=== PATIENT | male | born 1990 | race Caucasian/White ===

== ENCOUNTER 2021-04-14 02:46 | Observation (INO) | payer OTHER ==
[~2021-04-14] VITALS: Ht 182.9 cm; Wt 210.1 kg
[~2021-04-14 02:46] MED LIST: AVELOX400 MG PO; HYDROCODON-ACE1 EA10 PO; HYDROCODON-ACE1 EAC8 PO; LISINOPRIL20 MG PO; NORCO 7.5-3251 EACH PO; TRAMADOL HCL50 MG PO; ULTRAM50 MG PO; ZITHROMAX250 MG PO
--- NOTE | 2021-04-14 06:30 | NUR ---
PT ARRIVED TO ROOM 108 FROM ED VIA STRETCHER @ 0621. SELF TRANSFERED FROM STRETCHER TO HIS BED INDEPENDENTLY. LEFT LEG MARKED PRIOR TO ADMISSION, PT DENIES PAIN OR NAUSEA. STATES HE IS SLEEPY. A/O, PLEASANT, ON ROOM AIR.
--- NOTE | 2021-04-14 07:00 | NUR ---
REPORT RECEIVED FROM MARICARMEN JOSHI. PT RESTING IN BED ON RIGHT SIDE. ALERT AND ORIENTED. PT REPORTS HEADACHE AT 6/10 AT THIS TIME. AWAITING MD PRN ORDERS. COFFEE AND WATER PROVIDED. PT DENIES ADDITIONAL REQUESTS OR COMPLAINTS AT THIS TIME. CALL DARÍO ABBOTT.
--- NOTE | 2021-04-14 07:52 | NUR ---
MORNING ASSESSMENT AND MEDICATION DUE. PT RESTING IN BED TALKING ON PHONE. PT REPORTS 7/10 HEADACHE AND BACK ACHE CONTINUE. SEE MAR FOR MEDICATION GIVEN. PT REPORTS INTERMITTANT NAUSEA. NAUSEA SUDDLENLY INCREASES DURING MORNING CARES AND PT VOMITS 200ML YELLOW/GREEN EMESIS. AFTER EMESIS PT STATES "I FEEL MUCH BETTER NOW." PT STATES EMESIS IS "HOW THIS ALL STARTED." SEE MAR FOR MEDICATION GIVEN. PT REMAINS ALERT AND ORIENTED. LUNG SOUND SHOW EXPRIATORY WHEEZES THROUGHOUT, PT REPORTS HISTORY OF ASTHMA, DOES NOT USE AN INHALER AT HOME. MULTIPLE MISSING TEETH NOTED. DARKNESS NOTED IN PERIORBITAL AREA. REDNESS TO LLE NOTED, THAT IS HOT TO TOUCH. REDNESS OUTLINED AND DATED. PT REPORTS THE REDNESS STARTED YESTERDAY AND INCREASED QUICKLY, HE ORIGINALLY THOUGHT HE "JUST HAD COVID" RELATED TO THE NAUSEA. LLE MEARSURES 45CM CIRCUMFRENTIALLY AT 25CM FROM HEEL. RLL MEASURES 39CM CIRCUMFRENTIALL AT 25CM FROM HEEL. PT REPORTS PAIN MEDICATION HAS HELPED "A LOT" REPORTS HEADACHE IS NOW 0/10. PT REPORTS NAUSEA HAS RESOLVED. BREAKFAST ORDER PLACED. PT DENIES ADDITIONAL REQUESTS OR COMPLAINTS. CALL LIGHT Craft [employer] MILENA. BED RAILS UP.
--- NOTE | 2021-04-14 08:19 | NUR ---
PATIENT RESTING IN BED. NURSE SUNNY IN WITH PATIENT. BREAKFAST WAS ORDERED. THEY DO NOT NEED ANY HELP OR ANYTHING AT THIS TIME. CALL LIGHT IN REACH.
--- NOTE | 2021-04-14 09:20 | NUR ---
Spoke with Jorge and he resides in a mobile home with 3 steps. He lives alone with his dog. Brother lives next door. He does not use any DME, except for a CPAP. He works at the [employer] and [employer]. Denies financial worries. Will have assist from Dad and brother if needed. He drove himself in and plans on driving himself home.
--- NOTE | 2021-04-14 09:20 | NUR ---
Spoke with Jorge and he resides in a mobile home with 3 steps. He lives alone with his dog. Brother lives next door. He does not use any DME, except for a CPAP. He works at the [employer] and [employer]. Denies financial worries. Will have assist from Dad and brother if needed. He drove himself in and plans on driving himself home.
--- NOTE | 2021-04-14 10:15 | NUR ---
THIS RN TO ROOM TO CHECK ON PT. PT RESTING ON RIGHT SIDE. PT REPORTS HEADACHE HAS RETURNED NOW 04/13. SEE MAR FOR MEDICATION GIVEN. PT ALSO REPORTS ONGOING NAUSEA, WAS UNABLE TO EAT HIS BREAKFAST. SEE MAR FOR MEDIATION GIVEN. SALTINE CRACKER PROVIDED, WHICH PT WAS ABLE TO KEEP DOWN, AFTER WHICH HE COULD TAKE ORAL MEDICATIONS. NEW IV FLUIDS GIVEN. IV ASSESSED, WNL, BLOOD RETURN NOTED. PHENEGRAN GIVEN THROUGH FREE FLOWING IV LINE DILUTED IN 30ML NORMAL SALINE OVER SLOW IV PUSH, BLOOD RETURN NOTED EVERY 5ML OF IV PUSH. PT DENIES PAIN AT IV SITE. NO S/S OF PHELBITIS NOTED. PT REQUESTS TO USE A CPAP. RT CALLED AND STATES NO HOSPITAL CPAP MACHINES ARE AVALIABLE. PT CALLS HIS BROTHER TO BRING IN HOME CPAP. PT RESTING ON BACK WITH HEAD OF BED ELVATED TO 12 DEGREES. PT DECLINES FURTHER ELEVATION OF HEAD OF BED. NO ADDITIONAL REQUESTS OR COMPLAINTS. CALL LIGHT WITHIN REACH. BED RAILS UP.
--- NOTE | 2021-04-14 12:10 | NUR ---
THIS RN TO ROOM TO CHECK ON PT. PT RESTING ON LEFT SIDE. PT REPORTS NAUSEA HAS IMPROVED BUT STILL NOT RESOLVED. PT REPORTS 6/10 HEADACHE CONTINUES, SEE MAR FOR ADDITIONAL MEDICATION GIVEN. PT DECLINES LUNCH. CPAP ARRIVED. PT STATES "ONCE I CAN GET SOEM SLEEP WITH OUT STOPPING BREATING EVERY FEW MINUTES, I THINK I'LL FEEL BETTER." RT CALLED. SINDY, RT TO BEDSIDE, TO SET UP CPAP. PT NOW RESTING WITH CPAP IN PLACE, PER HOME SETTINGS. NO OXYGEN NEEDED. PT DENIES ADDITIONAL REQUESTS OR COMPLAINTS. CALL LIGHT WITHIN REACH. BED RAILS UP.
--- NOTE | 2021-04-14 12:16 | NUR ---
MD UPDATED ON PT STATUS AND ARRIVAL OF HOME CPAP. STATES TO PLACE ORDER FOR USE NEEDED. ORDER ENTERED. MD STATES TO DELET NEURO CHECK ORDER IT WAS ENTERED IN ERROR. NO ADDITIONAL NEW ORDERS AT THIS TIME.
--- NOTE | 2021-04-14 13:20 | NUR ---
THIS RN TO ROOM TO CHECK ON PT. PT RESTING ON RIGHT SIDE WITH EYES CLOSED, RESPRAITONS EVEN AND UNLABORED. CPAP IN PLACE. PT ALLOWED TO REST UNDESTURBED, CALL LIGHT WITHIN REACH. BED RAILS UP.
--- NOTE | 2021-04-14 15:01 | NUR ---
AFTERNOON ASSESSMENT AND MEDICATION DUE. THIS RN TO ROOM. PT GETTING UP TO RESTROOM WITH DAVID RODRÍGUEZ. STAND BY ASSIST UP TO CHAIR. PT REPORTS NAUSEA HAS RESOLVED. PT STATES HEADACHE AND NECK PAIN HAS IMPROVED NOW 4/10 AND TOLERATBLE. PT DENIES NEED FOR ADDITIONAL PAIN MEDICATION AT THIS TIME. IV ASSESSED, WNL, BLOOD RETURN NOTED. NO S/S PHLEBITIS NOTED. PHARMASCIST CALLED TO [facility] VANCOMYACIN DOSEING AND STATES OK TO GIVE AT THIS TIME. VANCO ABX INFUSION STARTED. PT ABLE TO VERBALIZE UNDERSTANDING OF SIDE EFFECTS AND MEDICATION PURPOSE. PT REPORTS LEFT LOWER EXTREMITIY IS "STARTING TO THROB A LITTLE BIT BUT IT'S NO BIG DEAL." PT DENIES NEED FOR PAIN MEDICATION. MEAUSREMENTS TO LEFT LOWER EXTREMITY UNCHANGED. REDNESS REMAINS WITHIN OUTLINED AREA. PT DENIES NUMBNESS AND TINGLING. PT REMAINS UP TO CHAIR. NO ADDITIONAL REQUESTS OR COMPLAINTS. STATES "I AM REALLY FEELING BETTER COMPARED TO LAST NIGHT." PT REPORTS APPITITE IS IMPROVING, SNACK PROVIDED, DINNER ORDER PLACED. CALL LIGHT WITHIN REACH.
--- NOTE | 2021-04-14 16:31 | NUR ---
THIS RN TO ROOM TO CHECK ON PT. PT REMAINS UP TO CHAIR. STAND BY ASSIST BACK TO BED. PT REPORTS 02/11 "ACHING" PAIN IN LLE. SEE MAR FOR MEDICATION GIVEN. PT DENIES NAUSEA. PT REPORTS HE WOULD LIKE TO REST FOR A WHILE. CPAP WITHIN REACH. ICE WATER REFILLED. NO ADDITIONAL REQUESTS OR COMPLAINTS. CALL LIGHT WITHIN REACH.
--- NOTE | 2021-04-14 16:45 | NUR ---
PT HERE FOR CELLULITIS OF LEFT LEG. UP IN ROOM WITH STAND BY ASSIST. TOELRATING REGULAR DIET WITH MINIMAL INTAKE. IV TO LEFT FORARM WNL WITH NO S/S OF PHELBITIS NOTED, BLOOD RETURN NOTED THIS SHIFT. MONITORED CLOSELY WITH VANCOMYACIN INFUSIONS. PT ALERT AND ORIENTED. LUNG SOUNDS CLEAR. HEADACHE PAIN AND NAUSEA THIS MORNING. PRN MEDICATIONS GIVEN WITH GOOD EFFET. LLE PAIN STARTING THIS AFTERNOON. REDNESS TO LLE OUTLINED. LLE SWOLLEN, MEASURED THIS SHIFT X2, NO CHANGES. ORAL POTASSIUM REPLACEMENT GIVEN THIS SHIFT. PTS HOME CPAP ARRIVED AND SET UP BY RT. PT USES APPROPRILATY. IV VANCOMYACIN GIVEN X2. PT AFEBRIAL SO FAR THIS SHIFT. VOIDING QUANTITY SUFFICIENT. PT USES CALL LIGHT APPROPRIATLY.
--- NOTE | 2021-04-14 17:56 | NUR ---
THIS RN TO ROOM TO CHECK ON PT. PT RESTING ON RIGHT SIDE, CPAP IN PLACE. RESPRIATIONS EVEN AND UNLABORED. CALL LIGHT WITHIN REACH. BED RAILS UP. PT ALLOWED TO REST UNDESTURBED.
--- NOTE | 2021-04-14 19:08 | NUR ---
REPORT GIVEN TO MARICARMEN SHEA, WHO IS ASSUMING CARE OF PT.
--- NOTE | 2021-04-14 20:25 | NUR ---
PT CALLED, HAD VOMITED, APPROX 100, STATED IT WAS THE JELLO HE ATE EARLIER, THINKS THE PO PAIN MEDICATION ON EMPTY STOMACH MAY HAVE CAUSED VOMITING. PT DID NOT EAT HIS DINNER, HE DIDN'T FEEL LIKE IT. USED URINAL INDEPENDENTLY; DID REQUEST TO TRY ANOTHER JELLO, DENIED NAUSEA.
--- NOTE | 2021-04-14 21:45 | NUR ---
IN TO GET VITALS, FRESH ICE WATER PROVIDED AT THIS TIME, NO FURTHER NEEDS
--- NOTE | 2021-04-14 22:13 | NUR ---
awake, watching tv, no c/o pain. on room air, SBA, IVF infusing LAC, patent. abd large, pt obese, 1+ generalized edema R hand and LE, Lleg red, hot and tender to touch, areas marked. elevated, good cms. coop with assessment, call light and fresh fluids at bedside
--- NOTE | 2021-04-14 23:46 | NUR ---
c/o 5/10 l le pain, medicated with Oxycodone 5mg po
--- NOTE | 2021-04-15 00:30 | NUR ---
PT PROVIDED WITH AN I.S. AT BEDSIDE FOR RESENT TEMP, TEMP RECHECKED, ICE WATER REFILLED AT THIS TIME, URNIAL EMPTIED FOR PT, NO FURHTER NEEDS
--- NOTE | 2021-04-15 03:43 | NUR ---
rESTING, NO DISTRESS, USING HOME cpap. IVF INFUSING W/O PROBLEMS, NO C/O ADVERSE REACTION TO IV ABX. L LEG DECREASING REDNESS AND WARMTH. NO FURTHER C/O PAIN OR FEELING NAUSEATED. CALL LIGHT AT HANDS REACH
--- NOTE | 2021-04-15 05:03 | NUR ---
Pt has slept this shift, using home CPAP, on room air otherwise, lungs clear, obese, 1/trace edema to R hand and LE, except L hand, IVF infusing BOB, patent. no c/o adverse reaction to Vancomycin, tolerating liquids. Medicated per LLE pain, and per feeling nauseated x1, no emesis, pain med effective. LLE below knee red, warm-tender to touch, decreased redness, edges marked, elevated. voising QS. cooperative, alert, oriented, independent in room. had a temp of 99.1 at begining of shift, afebrile, IS at bedside.
--- NOTE | 2021-04-15 06:13 | NUR ---
coop with vitals and assessment, decreased redness and warmth from LLE, decreased pain. turns and repositions self in bed, leg elevated. uses cpap most of this shift. IVF infusing. c/o h/a, medicated with Tylenol, tolerating fluids well
--- NOTE | 2021-04-15 07:43 | NUR ---
REPORT RECEVIED FROM MARICARMEN SHEA. PT SITTING ON EDGE OF BED. PT REPORTS 10/10 PAIN WITH ACTIVITY IN LLE. PT ALSO REPORTS 8/10 HEADACHE. PT STATES WHEN RESTING PAIN IN LLE IS DOWN TO 2/10. SEE MAR FOR MEDICATION GIVEN. PT REPORTS HE IS OTHERWISE "FEELING BETTER" TODAY. IV ABX COMPLETE. IV ASSESSED, WNL. NO S/S OF PHELBITIS NOTED. COFFEE PROVIDED PT NORMALLY DRINKS UP TO 24OZ/DAY, AND THIS COULD BE CONTRIBUTING TO HEACACHE. PT ALSO REPORTS HIS LEFT INNER GROIN HAS BEEN "A LITTLE SORE." REDNESS TO LLE REMAINS WITHIN OUTLINE. PT REPORTS IT SEEMS "MUCH BETTER." NO ADDITIONAL REQUESTS OR CONCERNS AT THIS TIME. CALL LIGHT WITHIN REACH.
--- NOTE | 2021-04-15 09:22 | NUR ---
ASSESSMENT AND MEDICATION DUE. PT UP IN ROOM. PT REPORTS HEADACHE AND LLE PAIN HAS IMPROVED, NOW /, PT DENIES NEED FOR ADDITIONAL PAIN MEDICATIONS. PT STATES "I FEEL SO MUCH BETTER NOW." PT REPORTS HE HAD AN EPISODE OF NAUSEA/EMESIS THIS MORNING. PRN NAUSEA MEDICATIONS GIVEN BY MARICARMEN SAAVEDRA. PT REPORTS NAUSEA HAS NOW RESOLVED. IV ASSESSED, WNL. BLOOD RETURN NOTED. NO S/S OF PHELBITITS NOTED. PT ALERT AND ORIENTED. LUNG SOUNDS CLEAR. HEART TONES REGULAR. PT STEADY ON FEET BUT LIMPS AT TIMES RELATED TO PAIN. REDNESS TO LLE WITHIN MARKED AREA. CONTINUES TO BE WARM TO TOUCH BUT HEAT LEVEL IMPROVING. PT REPORTS HIS LEG "LOOKS A LOT BETTER ALREADY." PT REPORTS SORENESS IN GROIN CONTINUES, LYMPNODES FLET AND APPEAR SLIGHTLY SWOLLEN. LLE MEASURES 44CM TODAY, IMPROVED FROM YESTERDAY. RRE CONTINUES TO MEAUSRE 39CM. BOTH MEASUREMENTS TAKEN AT 25CM FROM HEEL. PT ENCORUAGED TO EAT YOUGURT AT HOME TO HELP WITH DIARRHEA PREVENTION AND CONTINUE TO STAY HYDRATED. PT VERBALIZES UNDERSTANDING. NO ADDITIONAL REQUESTS OR COMPLAINTS AT THIS TIME. CALL LIGHT WITHIN REACH. BED RAILS UP.
[2021-04-15] MEDS ORDERED: CEPHALEXIN500 M1 PO (09:32)
[2021-04-15] MEDS ORDERED: OXYCODONE HCL5 MG PO (09:33)
[2021-04-15] MEDS ORDERED: ONDANSETRON ODT4 MG SL (09:34)
--- NOTE | 2021-04-15 10:17 | NUR ---
PT READY FOR DISCHARGE. PT RESTING IN BED. CONTINUES TO REPROT 3-4/10 PAIN IN LLE AND HEADACHE. PHARMACIST TO BEDSIDE TO REVIEW MEDICATIONS. PT VERBALIZES UNDERSTANDING OF MEDICATIONS AND SIDE EFFECTS AND STATES HIS QUESTIONS HAVE BEEN ANSWERED. PUMP ALARMING, ABX AND FLUSH COMPLETE. IV ASSESSED, WNL. NO S/S PHLEBITIS NOTED. IV DC'D PER PROTOCOL, GAUZE AND COBAN APPLIED. PT DRESSES SELF, NO ASSISTANCE NEEDED. DISCHARGE INSTRUCTIONS REVIEWED WITH PT. PT VEBALIZES UNDERSTANDING OF INSTRUCTIONS, SKIN CARE, MEDICATIONS, AND FOLLOW UP APPOINTMENT. PT STATES HIS QUESTIONS HAVE BEEN ANSWERED. PT AWIATING ARRIVAL OF FAMILY NO ADDITIONAL REQUESTS OR CONCERNS.
== END 2021-04-15 10:35 | disposition home or self-care (01) ==
LOC: ED 02:46 → MS 02:48 → ED 05:06 → MS 04-15 10:35
PROVIDERS: ADMIT Student in an Organized Health Care Education/Training Program; ATTEND Student in an Organized Health Care Education/Training Program
DX: A41.9 Sepsis, unspecified organism (principal); L03.116 Cellulitis of left lower limb; I10 Essential (primary) hypertension; E66.01 Morbid (severe) obesity due to excess calories; Z87.891 Personal history of nicotine dependence; Z88.1 Allergy status to other antibiotic agents; Z91.013 Allergy to seafood; Z20.822 Contact with and (suspected) exposure to COVID-19; Z68.42 Body mass index [BMI] 45.0-49.9, adult
CPT/HCPCS: 71045; 80048; 80053; 80202; 83605; 85025; 87040; 96365; 96366; 96367; 96372; 96374; 96375; 96376; 99285-25; C9803; G0378; J0696; J1170; J1650; J2405; J2550; J3370; J7030; J7060; J7121; U0003

== ENCOUNTER 2021-04-18 23:19 | Emergency (ER) | payer OTHER ==
[~2021-04-18] VITALS: Ht 182.9 cm; Wt 215.5 kg
[~2021-04-18 23:19] MED LIST changes: +CEPHALEXIN500 M1 PO; +ONDANSETRON ODT4 MG SL; +OXYCODONE HCL5 MG PO
--- OUTSIDE RECORDS SUMMARY | 2021-04-18 23:22 | XMS ---
PreManage Notification: ANGE RODRÍGUEZ Security Fabricator Assembl[employer] Events No recent Security Events currently on file CRITERIA MET - History of Sepsis Dx CARE PROVIDERS There are no care providers on record at this time. Ruy has no Care Guidelines for this patient. Raghavendra VISIT COUNT (12 MO.) 1 DARREN Claire TOTAL 1 NOTE: Visits indicate total known visits. ED/C VISIT TRACKING (12 MO.) 04/18/2021 23:20 DARREN Carmona [place] TYPE: Emergency COMPLAINT: - LT LEG SWELLING INPATIENT VISIT TRACKING (12 MO.) 04/14/2021 02:48 DARREN Carmona [place] TYPE: Observation COMPLAINT: - CELLULITIS DIAGNOSES: - Essential (primary) hypertension - Allergy status to other antibiotic agents - Cellulitis of left lower limb - Body mass index [BMI] 45.0-49.9, adult - Morbid (severe) obesity due to excess calories - Allergy to seafood - Personal history of nicotine dependence - Sepsis, unspecified organism [email or web address]
[2021-04-19] MEDS ORDERED: DOXYCYCLINE HY100 MG PO (00:31)
== END 2021-04-19 02:08 | disposition home or self-care (01) ==
LOC: ED 23:19
DX: L03.116 Cellulitis of left lower limb (principal); I10 Essential (primary) hypertension; E66.9 Obesity, unspecified; Z91.030 Bee allergy status; Z88.1 Allergy status to other antibiotic agents
CPT/HCPCS: 85025; 93971; 96374; 99284-25; J3370; J7060

== ENCOUNTER 2022-03-15 01:23 | Emergency (ER) | payer OTHER ==
[~2022-03-15] VITALS: Ht 182.9 cm; Wt 225.3 kg
[~2022-03-15 01:23] MED LIST changes: +DOXYCYCLINE HY100 MG PO
[2022-03-15] MEDS ORDERED: CEFDINIR300 MG PO (03:21)
== END 2022-03-15 04:07 | disposition home or self-care (01) ==
LOC: ED 01:23
DX: L03.116 Cellulitis of left lower limb (principal); Z20.822 Contact with and (suspected) exposure to COVID-19; I10 Essential (primary) hypertension; E66.9 Obesity, unspecified; Z88.1 Allergy status to other antibiotic agents; Z91.013 Allergy to seafood
CPT/HCPCS: 36415; 85025; 85379; 87502; 93971; 96365; 99284-25; C9803; J0696; U0003

== ENCOUNTER 2022-03-15 15:18 | Emergency (ER) | payer OTHER ==
[~2022-03-15] VITALS: Ht 182.9 cm; Wt 225.0 kg
[~2022-03-15 15:18] MED LIST changes: +CEFDINIR300 MG PO
--- OUTSIDE RECORDS SUMMARY | 2022-03-15 15:20 | XMS ---
PreManage Notification: ANGE RODRÍGUEZ Security Copy Center Associate Events No recent Security Events currently on file CRITERIA MET - [facility] - 2 Visits in 30 Days CARE PROVIDERS EJ LEE Physician Blunger Loader 04/19/2021-Current PHONE: [phone] Ruy has no Care Guidelines for this patient. ECheo VISIT COUNT (12 MO.) 3 [facility] TOTAL 3 NOTE: Visits indicate total known visits. ED/UCC VISIT TRACKING (12 MO.) 03/15/2022 15:18 DARREN Carmona OR TYPE: Emergency COMPLAINT: - LT LEG PAIN 03/15/2022 01:24 DARREN Carmona OR TYPE: Emergency COMPLAINT: - LEG PAIN 04/18/2021 23:20 DARREN Carmona OR TYPE: Emergency COMPLAINT: - LT LEG SWELLING DIAGNOSES: - Bee allergy status - Essential (primary) hypertension - Cellulitis of left lower limb - Obesity, unspecified - Allergy status to other antibiotic agents INPATIENT VISIT TRACKING (12 MO.) 04/14/2021 02:48 DARREN Carmona OR TYPE: Observation COMPLAINT: - CELLULITIS DIAGNOSES: - Essential (primary) hypertension - Allergy status to other antibiotic agents - Cellulitis of left lower limb - Body mass index [BMI] 45.0-49.9, adult - Morbid (severe) obesity due to excess calories - Allergy to seafood - Personal history of nicotine dependence - Sepsis, unspecified organism [email or web address]
== END 2022-03-15 23:07 | disposition home or self-care (01) ==
LOC: ED 15:18
DX: L03.116 Cellulitis of left lower limb (principal); Z20.822 Contact with and (suspected) exposure to COVID-19
CPT/HCPCS: 36415; 80053; 83605; 85025; 87502; 96365; 99283-25; C9803; J0696; J7030; U0003

== ENCOUNTER 2023-01-18 23:17 | Inpatient (IN) | payer OTHER ==
[~2023-01-18] VITALS: Ht 188 cm; Wt 225.4 kg
[~2023-01-18 23:17] MED LIST changes: +MELOXICAM10 MG PO
--- OUTSIDE RECORDS SUMMARY | 2023-01-18 23:30 | XMS ---
PreManage Notification: ANEG RODRÍGUEZ Security [employer] Events No recent Security Events currently on file CRITERIA MET - [facility] - 2 Visits in 30 Days CARE PROVIDERS -[place]- Dentist: Estate Planning Director [facility] PHONE: [phone] EJ LEE Physician Interactive Marketing Strategist 04/19/2021-Current PHONE: Unknown Ruy has no Care Guidelines for this patient. Raghavendra VISIT COUNT (12 MO.) [address] [place] [address] TOTAL 4 NOTE: Visits indicate total known visits. ED/UCC VISIT TRACKING (12 MO.) 01/18/2023 23:19 DARREN Carmona OR TYPE: Emergency COMPLAINT: - L LEG SWELLING / NAUSEA 01/18/2023 03:04 DARREN Carmona OR TYPE: Emergency COMPLAINT: - LT LEG PAIN 03/15/2022 15:18 DARREN Carmona OR TYPE: Emergency COMPLAINT: - LT LEG PAIN DIAGNOSES: - Cellulitis of left lower limb - Contact with and (suspected) exposure to COVID-19 03/15/2022 01:24 DARREN Carmona OR TYPE: Emergency COMPLAINT: - LEG PAIN DIAGNOSES: - Allergy status to other antibiotic agents - Allergy to seafood - Cellulitis of left lower limb - Contact with and (suspected) exposure to COVID-19 - Essential (primary) hypertension - Obesity, unspecified INPATIENT VISIT TRACKING (12 MO.) No inpatient visits to display in this time frame [email or web address]
[2023-01-19 02:21] VITALS: BP 138/84
--- NOTE | 2023-01-19 02:55 | NUR ---
ARJO BED ORDERED.
[2023-01-19 03:51] VITALS: BP 131/76
--- NOTE | 2023-01-19 04:45 | NUR ---
PT GIVEN NORCO FOR BACK PAIN.
--- NOTE | 2023-01-19 07:15 | NUR ---
REPORT FROM LAYLA HERNADEZ, PT WITH NS@125 L ARM, CALL LIGHT IN REACH RESTING.
--- NOTE | 2023-01-19 07:15 | NUR ---
Spoke with Jorge. He states he is living in a camp trailer behind his brother's shop. He dad lives near. He does not have any issues getting in out of his trailer. He states his symptoms are most headache, general aching, pain. He denies issues with walking. He does not use DME and drives. Denies issues with cooking, cleaning, shopping. Plans on dc to home when cleared medically. Denies needs, denies financial issues.
[2023-01-19 08:03] VITALS: BP 126/71
--- NOTE | 2023-01-19 08:16 | NUR ---
PATIENT AWAKE IN BED, VITALS AND I&OS CHARTED. PATIENT UP TO BR FOR VOID, WEARING PERSONAL SANDALS FOR SAFETY. LINEN CHANGED. PATIENT DECLINED SHOWER, WOULD LIKE TO "WAIT TIL HE GETS HOME." RN AT BEDSIDE AT THIS TIME.
--- NOTE | 2023-01-19 08:40 | NUR ---
bed bath with chlorhexidine wipes provided to pt. left leg red and painful to touch, cracks noted in bilateral heel/foot skin - educated about foot care and hygeine. pt declined meal - eats after [address] black in to round on pt with this rn, see new orders. enc water. pt call light in reach denies needs.
--- NOTE | 2023-01-19 09:15 | NUR ---
pt reports 10/10 right hip pain, no redness or swelling, no injury noted, also complains of headache. left leg elevated above heart with ceiling sling/lift. call light in reach - medicated see emar.
--- NOTE | 2023-01-19 10:05 | NUR ---
pt trsf to room 107 by chair, report to jone and corbin najera.
[2023-01-19 10:45] VITALS: BP 154/86
[2023-01-19] MEDS ORDERED: MELOXICAM15 MG PO (11:28)
--- NOTE | 2023-01-19 11:28 | NUR ---
MED REC COMPLETE
--- NOTE | 2023-01-19 11:38 | NUR ---
RECEIVED REPORT IN CCU FROM ANDI TOVAR RN AT 1004 HOURS AND TRANSFERRED PT FROM ROOM 126 TO 107 VIA HIS CHAIR IN THE ROOM, WITH FEET ELEVATED, SO THE BARIATRIC BED IN ROOM 107 COULD BE CHECKED OFF BY "FACILITIES". PT BELONGINGS TRANSFERRED WITH PT TO ROOM 107. BED MADE, PT SELF TRANSFERRED TO BED, PILLOW PLACED BELOW HIS RIGHT HIP FOR 10 OUT OF 10 PAIN FROM "LAYING IN BED ALL THE TIME". HOT PACK PLACED ON HIP WELL. LLE ELEVATED IN SLING TO LIFT IN CEILING TO BE ABOVE THE HEART, WITH PILLOW UNDERNEATH IT, HOB SLIGHTLY ELEVATED. PT STATES HE DOES INTERMITTENT FASTING AND SINCE HE HAS STARTED THIS DIET PLAN, HE HAS BEEN EXPERIENCING HEARTBURN EVERY MORNING BEGINNING 0900 HOURS. HE DENIES HX OF HEARTBURN PRIOR TO DIETING. HE STATES HE DRINKS ONLY WATER UNTIL ABOUT 2PM. PT IS ABLE TO AMBULATE INDEPENDENTLY WITH TUBE/LINE MANAGEMENT. ASSESSMENT DONE. CALL LIGHT IN REACH, ICE WATER REFILLED. PT DENIES FURTHER NEEDS AT THIS TIME.
--- NOTE | 2023-01-19 12:30 | NUR ---
PT USES CALL LIGHT APPROPRIATELY TO REQUEST ASSISTANCE TOILETING. PT ABLE TO AMBULATE UNASSISTED WITH IV POLE TO VOID IN BATHROOM. 575 CLEAR DARK JORGE URINE VOIDED. PT BACK TO BED AFTER PERFORMING SOME STANDING STRETCHES, LLE IN SLING ELEVATED ABOVE HEART, PILLOW PLACED BELOW RIGHT HIP. PT STATES THE PILLOW AND HOT PACK HAVE HELPED HIS HIP PAIN TREMENDOUSLY. CALL LIGHT IN REACH. DENIES FURTHER NEEDS AT THIS TIME.
--- NOTE | 2023-01-19 13:43 | NUR ---
PT IV FLUIDS COMPLETE. PT REPORTS PAIN IN HEAD, "ALL OVER". RATES PAIN IN HEAD 8 OUT OF 10 THROBBING, ACHING, CONSTANT PAIN. NO HX OF MIGRAINES. PT REPOSITIONED TO HIS RIGHT SIDE, LLE ELEVATED ON 3 PILLOWS TO KEEP ABOVE THE HEART. PT REQUESTS "SOMETHING FOR PAIN". CALL LIGHT IN REACH.
--- NOTE | 2023-01-19 14:00 | NUR ---
PT REQUESTED [employer] [facility] FROM [facility] FOR HIS MEAL AFTER 2PM. ORDERED MEAL FOR HIM. CALL LIGHT IN REACH.
[2023-01-19 16:10] VITALS: BP 153/62
--- NOTE | 2023-01-19 18:48 | NUR ---
PT REPORTS VOIDED X3 WITHOUT USING THE CALL LIGHT, SPILLED HIS WATER AND CLEANED IT UP ALSO WITHOUT USING HIS CALL LIGHT. REINFORCED THE IMPORTANCE OF USING HIS CALL LIGHT TO ASK FOR HELP. PT WAS ABLE TO EAT SOME LUNCH AROUND 1400 HOURS AND MOST OF HIS DINNER, STATING HE IS NO LONGER NAUSEOUS. HE REPORTS SOME DISCOMFORT IN HIS RIGHT HIP STILL BUT NOT ENOUGH TO REQUEST PAIN MEDS OR NON-PHARMACOLOGIC METHODS OF PAIN RELIEF. CALL LIGHT IN REACH, DENIES FURTHER NEEDS.
--- NOTE | 2023-01-19 18:50 | NUR ---
PT TRANSFERRED TO M/S THIS MORNING JUST AFTER 1000 HOURS, FROM CCU. HE HAS BEEN AWAKE FOR MOST OF THIS SHIFT, PLEASANT AFFECT, C/O PAIN MOSTLY IN HIS RHIP FROM "LAYING IN THIS DAMNED BED ALL DAY". HE WAS GIVEN TYLENOL X1 TODAY FOR THIS PAIN. REPORTS THE PAIN IN HIS LEFT CALF IS LESS THAN THE PAIN IN HIS HIP AND HE HAS BEEN ABLE TO KEEP HIS LLE ELEVATED ABOVE HIS HEART FOR MOST OF THE SHIFT. HE WAS UP TO THE CHAIR TO EAT MEALS BUT FOR NOT LONGER THAN 30 MINUTES AT A TIME. HE IS ABLE TO AMBULATE AD NIKKI, BUT HIS LEG NEEDS TO BE ELEVATED ON PILLOWS WHILE IN BED OR SEATED. HE DOES INTERMITTENT FASTING AND EATS ONLY AFTER 1400 HOURS. HE DRINKS ONLY WATER THROUGHOUT THE DAY. PT RECEIVES ABX IN THE MORNING, LABS IN THE MORNING, LOTRIMIN BETWEEN THE TOES BID.
--- NOTE | 2023-01-19 19:10 | NUR ---
REPORT RECEIVED FROM MARICARMEN MOTTA. PT LAYING IN BED WITH LLE ELEVATED IN SLING. PT RESPONDS WHEN ADDRESSED. PT REPORTS USING URINAL. URINAL EMPTIED. PT DENIES ANY OTHER NEEDS AT THIS TIME. CALL LIGHT IN REACH.
[2023-01-19 21:50] VITALS: BP 147/74
--- NOTE | 2023-01-19 22:02 | NUR ---
IN TO ADMINISTER MEDICAITONS, SEE MAR. PT REPORTING HEADACHE 04/13 AND REQUESTING PRN PAIN MEDICATION. PRN TYLENOL ADMINISTERED, SEE NOV. VITALS AND I&Os COMPLETE. ASSESSMENT COMPLETE. LUNG SOUNDS CLEAR IN RUL AND LARRY. DIMINISHED IN RLL AND LLL. BOWEL TONES ACTIVE. REDNESS NOTED TO PTs LLE. WARM TO TOUCH. PT DENIES PAIN TO LLE. LLE ELEVATED ON PILLOWS. PT DENIES ANY OTHER NEEDS AT THIS TIME. CALL LIGHT IN REACH.
--- NOTE | 2023-01-19 22:26 | NUR ---
Assisted Pt with going to and from the bathroom and using the bathroom. Refilled ice pack. Pt had itchiness on back and red spots. Notified RN. Left call light in reach and bed alarm on. No other needs expressed by patient.
--- NOTE | 2023-01-20 00:52 | NUR ---
IN TO ROUND ON PT. PT RESTING IN BED SEMI-FOWLERS EYES CLOSED. RR EVEN AND UNLABORED. UPON ENTERING ROOM PT AWAKENS FROM SLEEP. PT STATES "I HAVE BAD SLEEP APNEA, THAT IS WHY I AM SITTING UP." PT REPORTS USING CPAP AT NIGHT. PULSE OX PLACED ON PTs FINGER O2 SATS AT 98% ON RA. PT REQUESTING WATER, WATER PROVIDED. PT DENIES ANY OTHER NEEDS AT THIS TIME. CALL LIGHT IN REACH.
[2023-01-20 01:24] VITALS: BP 159/83
--- NOTE | 2023-01-20 02:01 | NUR ---
SPOT CHECKED PTs O2 SATS WHILE PT RESTING IN BED WITH EYES CLOSED. RR EVEN AND UNLBAORED. O2 SATS 100% ON RA.
--- NOTE | 2023-01-20 02:47 | NUR ---
IV ABX COMPLETED. IV FLUSHED AND SALINE LOCKED. PT'S NEFF IS DRAINING FREELY, YELLOW CLOUDY URINE.
[2023-01-20 05:26] VITALS: BP 175/74
--- NOTE | 2023-01-20 05:26 | NUR ---
IN TO ROUND ON PT. PT RESTING IN BED WITH EYES CLOSED. RR EVEN AND UNLABORED. PT AWAKENS WHEN THIS RN ENTERS ROOM. VITALS AND I&Os COMPLETE. ASSESSMENT COMPLETE. LUNG SOUNDS CLEAR. BOWEL TONES ACTIVE. PT DENIES PAIN AT THIS TIME. LLE MINIMAL EDEMA NOTED. REDNESS NOTED TO LLE. LLE ELEVATED ON PILLOWS. LLE WARM TO TOUCH. PT DENIES PAIN TO LLE WITH TOUCH. URINAL EMPTIED. PT DENIES ANY OTHER NEEDS AT THIS TIME. CALL LIGHT IN REACH.
--- NOTE | 2023-01-20 07:00 | NUR ---
BEDSIDE HANDOFF REPORT RECEIVED FROM EQUIPMENT OPERATION INSTRUCTOR RN. PT RESTING IN BED, DENIES NEEDS AT THIS TIME.
--- NOTE | 2023-01-20 08:19 | NUR ---
PT SITTING IN CHAIR. PT ON ROOM AIR, LUNG SOUNDS CLEAR, DENIES SOB. PT STATES PAIN IS TOLERABLE, MOSTLY LOCATED ON POSTERIOR LEG. REDNESS AND WARMTH RECEEDING ON ANTERIOR LEG, REDNESS ON POSTERIOR LEG EXTENDING PAST OUTLINE. IV SALINE LOCKED. PT DENIES NASUEA, BOWEL TONES ACTIVE. VOIDING WITHOUT DIFFICULTY. DISCUSSED PLAN OF CARE FOR THE DAY. PT PROVIDED WITH TOOTH BRUSH AND TOOTH PASTE. PT DENIES OTHER NEEDS AT THIS TIME.
--- NOTE | 2023-01-20 09:44 | NUR ---
SPOKE TO PATIENT ABOUT THE DISCHARGE PLAN OF CARE.PATIENT WILL GO HOME TO HIS [place] THAT IS ON HIS [place]OTHER[place] L[place]. PATIENT DENIES THE NEED FOR DME WHEN DISCHARGED.
[2023-01-20 10:09] VITALS: BP 146/77
--- NOTE | 2023-01-20 10:10 | NUR ---
PATIENT IN BED AFTER MEAL, VITALS AND I/O'S COMPLETED. PT HAS NO OTHER REQUESTS AT THIS TIME. CALL LIGHT WITHIN REACH.
--- NOTE | 2023-01-20 10:31 | NUR ---
PER NURSING, PATIENT DOES INTERMITTENT FASTING AT HOME. HE DOES NOT EAT UNTIL 2 PM. DIETARY STAFF AWARE.
--- NOTE | 2023-01-20 10:51 | NUR ---
PT ALERT, ORIENTED AND SEEMS VERY RECEPTIVE TO MY VISIT. PT IS PLEASANT, HAS DEALT WITH THIS ALREADY ONCE IN THE LAST YEAR. GAVE SUPPORT AND ENCOURAGMENENT TO PT. INTRANET DEVELOPER GEORGINA IN TO TAKE VSS. GAVE BLESSING AND WILL FOLLOW
[2023-01-20 13:57] VITALS: BP 154/97
--- NOTE | 2023-01-20 17:43 | NUR ---
PT INDEPENDEDNT IN ROOM. PT ON ROOM AIR, LUNG SOUNDS CLEAR. PT WITH CELLULITS TO LEFT LOWER LEG, BEGINNING TO RECEED ON ANTERIOR PORTION BUT REMAINS WARM AND RED IN POSTERIOR LEG. CMS INTACT. VOIDING QS. RECEIVED DAPTOMYCIN BY IV PUSH. POSSIBLE DISCHARGE TOMORROW.
[2023-01-20 18:47] VITALS: BP 161/67
--- NOTE | 2023-01-20 19:15 | NUR ---
REPORT RECEIVED FROM MARICARMEN MARSHALL. PT LAYING IN BED AND RESPONDS WHEN ADDRESSED. PT REPORTS LLE BEING ITCHY AND STATES "I WANT TO ITCH IT SO BAD, BUT I HAVE NOT TOUCHED IT." PT DENIES ANY NEEDS AT THIS TIME. CALL LIGHT IN REACH.
[2023-01-20 20:24] VITALS: BP 160/89
--- NOTE | 2023-01-20 20:28 | NUR ---
IN TO ADMINISTER MEDICATIONS, SEE MAR. PT SITTING UP IN CHAIR. PT REPORTING HEADACHE 03/13 AND REQUESTING PRN TYLENOL. PRN TYLENOL ADMINISTERED, SEE MAR. PT TAKES PO MEDICATION WITH NO ISSUES. VITALS AND I&Os COMPLETE. ASSESSMENT COMPLETE. LUNG SOUNDS CLEAR. BOWEL TONES ACTIVE. PT DENIES PAIN IN LLE. PT STATES "NOT SO MUCH NOW, NOT BAD EARLIER TODAY." WHEN ASKED OF LLE IS STILL ITCHY. REDNESS TO LLE NOTED. EDEMA NOTED TO BLE. LLE WARM TO TOUCH. PT STATES "I WILL ELEVATE IT BEFORE I GO TO BED." CLOTRIMAZOLE CREAM APPLIED TO PTs BILATERAL FEET BETWEEN TOES. WATER PROVIDED. PT DENIES ANY OTHER NEEDS AT THIS TIME. CALL LIGHT IN REACH.
--- NOTE | 2023-01-20 22:58 | NUR ---
IN TO ROUND ON PT. PT LAYING IN BED ON PHONE. PT REPORTING PAIN "SAME." OFFERED PT HOT/ICE PACK. PT REQUESTING HOT PACK. HOT PACK PROVIDED. OFFERED PT PRN PAIN MEDICATION, PT DECLINES AT THIS TIME. PT DENIES ANYOTHER NEEDS AT THIS TIME. CALL LIGHT IN REACH.
--- NOTE | 2023-01-21 02:52 | NUR ---
IN TO ROUND ON PT. PT RESTING IN BED SEMI-FOWLERS. RR EVEN AND UNLBAORED. EYES CLOSED. PT AWAKENS WHEN THIS RN ENTERS ROOM. PT DENIES PAIN AT THIS TIME. PT REQUESTING WATER. WATER PROVIDED. URINAL EMPTIED. ASSESSMENT COMPLETE. LUNG SOUNDS CLEAR. BOWEL TONES ACTIVE. LLE ELEVATED ON PILLOW. LLE RENDESS NOTED, WARM TO TOUCH. PT DENIES PAIN OR ITCHYNESS TO LLE. PT DENIES ANY OTHER NEEDS AT THIS TIME. CALL LIGHT IN REACH.
[2023-01-21 05:49] VITALS: BP 159/86
--- NOTE | 2023-01-21 05:52 | NUR ---
IN TO ROUND ON PT. PT LAYING IN BED ON PHONE. PT RESPONDS WHEN ADDRESSED. VITALS AND I&Os COMPLETE. PT DENIES PAIN AT THIS TIME. PT DENIES ANY OTHER NEEDS AT THIS TIME. CALL LIGHT IN REACH.
--- NOTE | 2023-01-21 06:16 | NUR ---
THIS RN CALLED DR. EDWARDS TO INFORM HIM OF PTs LAB RESULTS THAT WERE CALLED IN FROM LAB. NO NEW ORDERS AT THIS TIME.
[2023-01-21 09:25] VITALS: BP 169/849
--- NOTE | 2023-01-21 10:40 | NUR ---
PT RESTING WITH EYES CLOSED FOR HOURLY ROUNDING AT 0830, AND MEDS. DAPTOMYCIN, LOVENOX AND LOTRIMIN ADMINISTERED DIRECTED. PT UP TO CHAIR, UNASSISTED. USED URINAL, 400ML CLEAR JORGE COLORED URINE, PT STATES THAT IT IS DARKER NOW THAN IT WAS WHEN HE WAS ON CONTINUOUS IV FLUIDS. PT DENIES FURTHER NEEDS AT THIS TIME. CALL LIGHT IN REACH.
[2023-01-21] MEDS ORDERED: DOXYCYCLINE HY100 M3 PO (11:04)
[2023-01-21] MEDS ORDERED: CEFPODOXIME PR200 MG PO (11:05)
[2023-01-21] MEDS ORDERED: CLOTRIMAZOLE45 G1 TOP (11:06)
--- NOTE | 2023-01-21 11:25 | NUR ---
SHIFT REPORT RECEIVED FROM [facility] SHIFT RN AT ABOUT 0715 HOURS. PT RESTING IN BED, HOB ELEVATED, LLE PROPPED UP ON PILLOWS. DENIES NEEDS AT THIS TIME. CALL LIGHT IN REACH.
--- NOTE | 2023-01-21 11:42 | NUR ---
PHARMACY IN WITH PT. PT UP IN CHAIR. CALL LIGHT IN REACH. DENIES NEEDS AT THIS TIME.
--- NOTE | 2023-01-21 12:29 | NUR ---
1205 REVIEWED PT DISCHARGE INSTRUCTIONS AND INFORMATION WITH PT. IV DC'D, CATH INTACT, PRESSURE BANDAGE APPLIED. PT GATHERED ALL PERSONAL BELONGINGS. PT STATED HE WOULD LIKE TO WALK. ESCORTED PT TO THE FRONT OF THE HOSPITAL WHERE HE WAS ABLE TO LOCATE HIS QUALITY ASSURANCE INTERN OUTSIDE TO DRIVE HIMSELF HOME. ALL PAPERWORK GIVEN TO PT.
== END 2023-01-21 12:10 | disposition home or self-care (01) | DRG 872 ==
LOC: ED 23:17 → MS 01-19 02:03 → CCU 01-19 02:03 → MS 01-19 10:05
PROVIDERS: ADMIT Internal Medicine; ATTEND Family Medicine
DX: A41.9 Sepsis, unspecified organism (principal); L03.116 Cellulitis of left lower limb; Z68.44 Body mass index [BMI] 60.0-69.9, adult; I10 Essential (primary) hypertension; E66.01 Morbid (severe) obesity due to excess calories; B35.3 Tinea pedis; Z88.1 Allergy status to other antibiotic agents; Z91.013 Allergy to seafood; Z90.89 Acquired absence of other organs; Z98.890 Other specified postprocedural states
CPT/HCPCS: 36415; 80048; 80053; 80202; 83605; 85025; 87040; 96374; 96375; 99284-25; A9270; J0878; J1650; J1885; J3370; J7030; J7060